=== PATIENT | male | born 1970 | race Caucasian/White ===

== ENCOUNTER → 2023-08-24 09:27 | Outpatient (REF) | payer OTHER, SELFPAY | LOC: RAD 09:27 | PROVIDERS: ATTENDING PHYSICIAN Nurse Practitioner Family; FAMILY PHYSICIAN Family Medicine | DX: I80.9 Phlebitis and thrombophlebitis of unspecified site (principal) | CPT/HCPCS: 93971 ==

== ENCOUNTER → 2023-11-16 06:29 | Day surgery (SDC) | payer OTHER, SELFPAY | LOC: GI 06:29 | PROVIDERS: ATTENDING PHYSICIAN Internal Medicine Gastroenterology | DX: Z12.11 Encounter for screening for malignant neoplasm of colon (principal); K63.5 Polyp of colon; K64.8 Other hemorrhoids | CPT/HCPCS: 45385; 45380; 88305 ==

== ENCOUNTER → 2023-12-21 15:45 | Outpatient (REF) | payer OTHER, SELFPAY | LOC: RAD 15:45 | PROVIDERS: ATTENDING PHYSICIAN Nurse Practitioner Family | DX: J40 Bronchitis, not specified as acute or chronic (principal); R05.2 Subacute cough; F17.200 Nicotine dependence, unspecified, uncomplicated | CPT/HCPCS: 71046 ==

== ENCOUNTER 2024-06-15 06:35 | Emergency (ER) | payer OTHER, SELFPAY ==
[2024-06-15 06:40] VITALS: BP 166/100
--- NOTE | 2024-06-15 06:55 | ED.GENMED ---
History of Present Illness
General
Chief Complaint: Abdominal Pain
Time Seen by Provider: 06/15/24 06:54
History of Present Illness
History of Present Illness:
TIME OF INITIAL ENCOUNTER: 7 AM
HPI: The patient presents with abdominal pain associated with vomiting. The pain started after he went out to dinner last night. He currently does not have any nausea. The pain is primarily in the left upper part of the abdomen. He has not had
any diarrhea.
EXAM:
GENERAL: Well appearing in no distress
HEENT: Moist oral mucosa
CARDIOVASCULAR: No murmurs, normal heart rate, regular rhythm, No chest wall tenderness
PULMONARY: No respiratory distress, breath sounds are clear and equal
ABDOMEN: Soft with no peritoneal signs, mild left upper quadrant tenderness
NEUROLOGIC: Excellent strength all extremities, no coordination deficits
PSYCHIATRIC: Appropriate mental status, normal insight and judgement
EXTREMITIES: Nontender, no edema, moves all extremities equally
SKIN: No rash, no lesions
NUMBER AND COMPLEXITY OF PROBLEMS ADDRESSED AT THE ENCOUNTER
� Chronic conditions affecting care: High blood pressure
� Acute Exacerbation and/or Progression of Chronic Illness: This is an acute problem
� Differential Diagnosis includes: Viral gastroenteritis, diverticulitis, mesenteric adenitis, bowel obstruction, kidney stone
AMOUNT AND/OR COMPLEXITY OF DATA TO BE REVIEWED AND ANALYZED
� I performed an independent evaluation of and my interpretation is:
EKG:
CT: CT personally reviewed I agree with radiologist interpretation there is a 5 mm stone in the left ureter and there is also a mass in the right lower quadrant mesentery
X-rays:
Laboratory Studies: White count 12.7, hemoglobin normal, chemistries unremarkable, urinalysis shows blood without evidence for UTI
Other:
� Review of other/old records: I reviewed records, the patient had a colonoscopy in 2023 in which polyps were removed. Internal hemorrhoids were also noted.
� Clinical information was obtained by an independent historian: None needed
� Prescriptions/Medications Considered but not given:
� Further testing considered but not performed:
RISK OF COMPLICATIONS AND/OR MORBIDITY OR MORTALITY OF PATIENT MANAGEMENT
� Social determinants of health affecting care: Lives at home
� Discussion with other providers:
� Escalation of care including admission/observation vs risk of discharge considered: The patient presents with left upper quadrant discomfort since last night, vomited 3 times but no longer is nauseated. Mild white count
elevation at 12.7. CT imaging obtained.
ANY OTHER UPDATES:
9 AM: I reassessed patient. The patient appears comfortable. He feels improved after Toradol was given. He did not take Celebrex last due to the vomiting. He will resume NSAIDs. I also informed patient of the 1.7 cm mass and printed out copy of
the CT report for him regarding this mass. Recommend PMD follow-up for now. He is also to follow-up with urology. No evidence for UTI
Past History
Past History
ED Past Medical History: HTN
Social History
Tobacco: Non-smoker
Drug: None
Living: with family
Employment: Employed
Phy Exam
Physical Exam
Physical Exam:
See HPI
Course
Orders/Labs/Results
Orders:
Orders
06/15/24 06:45
IV Insert/Care/Rem.- Treatment PRN
06/15/24 07:01
CT Abd/pelvis W Iv Cont Urgent
Comment:
Reason For Exam: LUQ pain
06/15/24 07:18
0.9% Sodium Chloride 1000 ml [Nss] 1,000 ml IV BOLUS
Ketorolac [Toradol] 15 mg IV NOW STA
06/15/24 07:32
Complete Blood Count/With Diff Urgent
Comprehensive Metabolic Panel Urgent
Lipase Urgent
Urinalysis Reflex To Culture Urgent
Date Specimen was Collected: 06/15/24
Time Specimen was Collected: 06:45
Urine Microscopic Reflex Cult Urgent
Urine Culture Urgent
[place] Source: U
Specimen Description:
Date Specimen was Collected: 06/15/24
Time Specimen was Collected: 06:45
Abnormal Lab Results
06/15/24
07:32
WBC 12.7 H 10^3/uL
(4.8-10.8)
Absolute Neuts (auto) 10.6 H 10^3/uL
(1.4-6.5)
Absolute Monos (auto) 0.8 H 10^3/uL
(0.1-0.6)
Neutrophils % 83.2 H %
(42.2-75.2)
Lymphocytes % 9.8 L %
(20.5-51.1)
Glucose 122 H mg/dl
(70-99)
Ur Occult Blood Reflex 4+ A
(Negative)
Urine RBC 30-40 A /HPF
(0-2)
Urine Bacteria (Reflex) Moderate A
(Negative)
06/15/24 07:32
06/15/24 07:32
Vital Signs
Initial and Last Documented VS:
Initial Vital Signs
Temp Pulse Resp BP Pulse Ox
36.7 C 86 20 166/100 97
06/15/24 06:40 06/15/24 06:40 06/15/24 06:40 06/15/24 06:40 06/15/24 06:40
Last Documented Vital Signs
Temp Pulse Resp BP Pulse Ox
36.7 C 86 20 166/100 98
06/15/24 06:40 06/15/24 06:40 06/15/24 06:40 06/15/24 06:40 06/15/24 06:40
*Critical Care Note
Total Time (30-74mins, 75-104mins- exclusive of procedures): Not Applicable
ED Attending Note
-
Portions of this chart may have been created with voice recognition software.� Occasional wrong word or��sound alike� substitutions may have occurred due to the inherent limitations of voice recognition software.
Discharge Plan
Departure
Patient Disposition: Home (Routine Discharge)
Date of Disposition: 06/15/24
Time of Disposition: 08:58
Patient with high blood pressure during this ER visit?: Yes
Discharge Problem:
Left ureteral stone
Instructions: Kidney Stones (DC)
Prescriptions:
New
oxycodone-acetaminophen [Percocet] 5-325 mg tablet
1 - 2 tab PO Q6H PRN (Reason: Pain) Qty: 14 0RF
ondansetron HCl 4 mg tablet
4 mg PO Q6H PRN (Reason: nausea and vomiting) Qty: 14 0RF
tamsulosin [Flomax] 0.4 mg capsule
0.4 mg PO DAILY Qty: 14 0RF
No Action
Lisinopril
20 mg PO DAILY
Celebrex
200 mg PO HS
amlodipine
2.5 mg PO DAILY
Referrals:
Robb Avitia MD [Family Provider] -
Tony Fuentes MD [Active] - Follow up in 2-3 days
Activity Restrictions/Additional Instructions:
You have a 5 mm stone in the middle of the left ureter. This is likely cause of your pain. Continue taking Celebrex. For more severe pain, I sent a prescription for Percocet to your pharmacy. The urinalysis does show blood does not show any
signs of infection. I recommend that you follow-up with the urologist such as Dr. Fuentes.
Also on CAT scan, radiologist noted: '1.7 cm soft tissue nodule in the right lower quadrant mesentery. This could reflect neoplasm such as carcinoid. Differential includes sclerosing mesenteritis. Outpatient workup recommended which may include
tissue sampling and/or further imaging (e.g. Ga-68 Dotatate)'.
Interventions
Interventions:
*Risk Screen - Suicide Last Done: 06/15/24 06:40
*General Assessment Last Done: 06/15/24 06:40
*Neglect/Abuse Screening Last Done: 06/15/24 06:40
ED- Fall Risk Assessment Last Done: 06/15/24 06:40
*ED COVID-19 Vaccine History Last Done: 06/15/24 06:40
XB-Anbuly-Vwdrqxwhvv Assessment Last Done: 06/15/24 07:52
Discharge Date and Time
Print Language: YI
[2024-06-15] MEDS: NSS 1000 IV (07:33)
[2024-06-15] MEDS: TORADOL 15 MG IV (07:33)
[2024-06-15 07:59] LABS: ALT (SGPT) 25 U/L (0-50); AST (SGOT) 27 U/L (17-59); Albumin 4.5 g/dl (3.5-5.0); Alkaline Phosphatase 55 U/L (38-126); Blood Urea Nitrogen 15 mg/dl (9-20); Calcium 9.2 mg/dl (8.4-10.2); Carbon Dioxide 26 mmol/L (22-30); Chloride 103 mmol/L (98-107); Glucose 122 mg/dl (70-99); Lipase 69 U/L (23-300); Potassium 4.6 mmol/L (3.5-5.1); Sodium 138 mmol/L (135-145); Total Bilirubin 0.7 mg/dl (0.2-1.3); Total Protein 7.3 g/dl (6.3-8.2); eGFR > 60.00
[2024-06-15 08:00] VITALS: BP 154/73
[2024-06-15 08:02] LABS: % Basophils 0.1 % (0-2); % Eosinophils 0.1 % (0-6); % Immature Granulocytes 0.3 % (0-0.5); % Lymphocytes 9.8 % (20.5-51.1); % Monocytes 6.5 % (1.7-9.3); % Neutrophils 83.2 % (42.2-75.2); Absolute Lymphocytes 1.2 10^3/uL (1.2-3.4); Absolute Monocytes 0.8 10^3/uL (0.1-0.6); Absolute Neutrophils 10.6 10^3/uL (1.4-6.5); Hematocrit 43.5 % (39.0-52.0); Hemoglobin 15.2 g/dL (13.0-18.0); Mean Corp Hgb Conc. 34.9 g/dL (33.0-37.0); Mean Corpuscular Hgb 30.5 pg (27.0-31.0); Mean Corpuscular Volume 87.3 fL (80.0-94.0); Mean Platelet Volume 8.7 fL (7.4-10.4); Nucleated Red Blood Cells % 0 % (-); Platelet Count 263 10^3/uL (130-400); Red Blood Cell Count 4.98 10^6/uL (4.70-6.10); Red Cell Dist. Width 12.7 % (11.5-14.5); White Blood Cell Count 12.7 10^3/uL (4.8-10.8)
[2024-06-15 08:41] LABS: Urine Albumin Trace (Neg - Trace); Urine Bilirubin Negative (Negative); Urine Character Clear (Clear); Urine Color Yellow; Urine Glucose Negative (Negative); Urine Ketone Negative (Negative); Urine Leukocyte Negative (Negative); Urine Nitrite Negative (Negative); Urine Occult Blood 4+ (Negative); Urine Urobilinogen Negative (Neg - 1+)
[2024-06-15 08:56] LABS: Urine Bacteria Moderate (Negative); Urine Red Blood Cell 30-40 /HPF (0-2); Urine Squamous Cell None seen /LPF (Few); Urine White Cell None Seen /HPF (0-5)
== END 2024-06-15 09:46 | disposition home or self-care (01) ==
LOC: EMR 06:35
PROVIDERS: EMERGENCY PHYSICIAN Emergency Medicine; FAMILY PHYSICIAN Family Medicine
DX: N13.2 Hydronephrosis with renal and ureteral calculous obstruction (principal); I10 Essential (primary) hypertension
CPT/HCPCS: 99284; 96374; 96361; 74177; 80053; 81003; 81015; 83690; 85025; 87086; Q9967

== ENCOUNTER → 2024-07-12 09:32 | Outpatient (REF) | payer OTHER, SELFPAY | LOC: RAD 09:32 | PROVIDERS: ATTENDING PHYSICIAN Urology; FAMILY PHYSICIAN Family Medicine | DX: N20.0 Calculus of kidney (principal) | CPT/HCPCS: 74018 ==

== ENCOUNTER → 2024-08-06 09:02 | Outpatient (REF) | payer OTHER, SELFPAY | LOC: MRI 3T 09:02 | PROVIDERS: ATTENDING PHYSICIAN Surgery; FAMILY PHYSICIAN Family Medicine | DX: K63.89 Other specified diseases of intestine (principal) | CPT/HCPCS: 72197; 74183; A9575 ==

== ENCOUNTER → 2024-09-07 07:04 | Outpatient (REF) | payer OTHER, SELFPAY | LOC: MRI 07:04 | PROVIDERS: ATTENDING PHYSICIAN Physical Medicine & Rehabilitation; FAMILY PHYSICIAN Family Medicine | DX: M75.42 Impingement syndrome of left shoulder (principal) | CPT/HCPCS: 73221 ==

== ENCOUNTER 2024-10-21 17:38 | Emergency (ER) | payer OTHER, SELFPAY ==
[2024-10-21 17:41] VITALS: BP 149/102
[2024-10-21 18:03] LABS: % Basophils 0.5 % (0-2); % Eosinophils 2.9 % (0-6); % Immature Granulocytes 0.2 % (0-0.5); % Lymphocytes 34.3 % (20.5-51.1); % Monocytes 10.7 % (1.7-9.3); % Neutrophils 51.4 % (42.2-75.2); Absolute Eosinophils 0.2 10^3/uL (0-0.7); Absolute Lymphocytes 2.8 10^3/uL (1.2-3.4); Absolute Monocytes 0.9 10^3/uL (0.1-0.6); Absolute Neutrophils 4.3 10^3/uL (1.4-6.5); Hematocrit 37.8 % (39.0-52.0); Hemoglobin 13.4 g/dL (13.0-18.0); Mean Corp Hgb Conc. 35.4 g/dL (33.0-37.0); Mean Corpuscular Hgb 30.9 pg (27.0-31.0); Mean Corpuscular Volume 87.3 fL (80.0-94.0); Mean Platelet Volume 8.2 fL (7.4-10.4); Nucleated Red Blood Cells % 0 % (-); Platelet Count 266 10^3/uL (130-400); Red Blood Cell Count 4.33 10^6/uL (4.70-6.10); Red Cell Dist. Width 12.6 % (11.5-14.5); White Blood Cell Count 8.3 10^3/uL (4.8-10.8)
[2024-10-21 18:31] LABS: ALT (SGPT) 31 U/L (0-50); AST (SGOT) 28 U/L (17-59); Albumin 4.2 g/dl (3.5-5.0); Alkaline Phosphatase 50 U/L (38-126); Blood Urea Nitrogen 14 mg/dl (9-20); Carbon Dioxide 22 mmol/L (22-30); Chloride 110 mmol/L (98-107); Glucose 114 mg/dl (70-99); Potassium 3.4 mmol/L (3.5-5.1); Sodium 140 mmol/L (135-145); Total Bilirubin 0.9 mg/dl (0.2-1.3); eGFR > 60.00
[2024-10-21 20:43] VITALS: BP 136/91
[2024-10-21 20:49] VITALS: BP 136/91
[2024-10-21 21:00] VITALS: BP 128/86
--- NOTE | 2024-10-21 21:55 | ED.GENMED ---
History of Present Illness
General
Chief Complaint: Skin Problem
Source: patient
Exam Limitations: none
Time Seen by Provider: 10/21/24 20:47
Nursing documentation reviewed up to this point in time: agreed with
History of Present Illness
History of Present Illness:
54-year-old male past medical history of hypertension presenting to the emergency department today with concerns of right lower extremity redness and swelling mainly to the right heller region over the past 3 days. Was seen by the primary care doctor
and sent to the ER to rule out DVT. Denies any chest pain shortness of breath or any recent trauma surgery immobilization or history of blood clots. Denies any fevers nausea or vomiting.
Past History
Past History
ED Past Medical History: HTN
Social History
Tobacco: Non-smoker
Drug: None
Living: with family
Employment: Employed
Review of Systems
Review of Systems
Allergies reviewed?: Yes
All Other Systems: ROS reviewed and negative except as documented in HPI and ROS
Phy Exam
Physical Exam
Physical Exam:
GENERAL: Alert , in no apparent distress
EYE: pupils equal and reactive
NECK: Supple, no significant adenopathy.
ENT: o/p clr, mmm.
CARDIAC: Regular rate and rhythm .
LUNGS: Clear breath sounds bilaterally, no acute respiratory distress, no wheezes/rales/rhonchi
ABDOMEN: Soft, without focal tenderness, no r/g, no cvat
NEUROLOGICAL: Alert and oriented, no focal neuro deficits
SKIN: Redness swelling mild tenderness to palpation to the right anterior heller roughly 15 x 5 cm in total size. Does not cross the knee joint or ankle joint. Warm and dry, skin intact.
MUSCULOSKELETAL: No edema, well perfused.
PSYCH: Normal and appropriate interaction.
Course
Orders/Labs/Results
Orders:
Orders
10/21/24 17:44
US Legs, Right [US Periph Venous LOWER Ext RT] Urgent
Comment:
Reason For Exam: red/swelling/pain
10/21/24 17:55
Complete Blood Count/With Diff Urgent
Comprehensive Metabolic Panel Urgent
10/21/24 21:54
Cephalexin Monohydrate [Keflex] 500 mg PO NOW STA
Abnormal Lab Results
10/21/24
17:55
RBC 4.33 L 10^6/uL
(4.70-6.10)
Hct 37.8 L %
(39.0-52.0)
Absolute Monos (auto) 0.9 H 10^3/uL
(0.1-0.6)
Monocytes % 10.7 H %
(1.7-9.3)
Potassium 3.4 L mmol/L
(3.5-5.1)
Chloride 110 H mmol/L
(98-107)
Creatinine 0.5 L mg/dL
(0.7-1.3)
Glucose 114 H mg/dl
(70-99)
10/21/24 17:55
10/21/24 17:55
Vital Signs
Initial and Last Documented VS:
Initial Vital Signs
Temp Pulse Resp BP Pulse Ox
98.6 F 105 20 149/102 96
10/21/24 17:41 10/21/24 17:41 10/21/24 17:41 10/21/24 17:41 10/21/24 17:41
Last Documented Vital Signs
Temp Pulse Resp BP Pulse Ox
98.6 F 89 18 128/86 95
10/21/24 17:41 10/21/24 21:38 10/21/24 21:38 10/21/24 21:00 10/21/24 21:30
MDM/Problems Addressed
MDM/Problems Addressed:
54-year-old male presenting to the emergency department today with concerns of right heller redness and swelling worsening over the past 3 days. No systemic symptoms. No history of immunosuppression. Labs unremarkable. Ultrasound without signs of
DVT. There is a possibility of cellulitis. Patient was started on antibiotics and otherwise will follow-up closely as an outpatient with his primary care doctor. Return precautions given.
*Critical Care Note
Total Time (30-74mins, 75-104mins- exclusive of procedures): Not Applicable
ED Attending Note
-
Portions of this chart may have been created with voice recognition software.� Occasional wrong word or��sound alike� substitutions may have occurred due to the inherent limitations of voice recognition software.
Discharge Plan
Departure
Patient Disposition: Home (Routine Discharge)
Date of Disposition: 10/21/24
Time of Disposition: 21:55
Patient with high blood pressure during this ER visit?: No
Condition: Good
Covid-19: Not Applicable
Discharge Problem:
Cellulitis of leg, right
Instructions: Cellulitis (Skin Infection), Adult (DC)
Prescriptions:
No Action
Lisinopril
20 mg PO DAILY
Celebrex
200 mg PO HS
amlodipine
2.5 mg PO DAILY
oxycodone-acetaminophen [Percocet] 5-325 mg tablet
1 - 2 tab PO Q6H PRN (Reason: Pain) Qty: 14 0RF
ondansetron HCl 4 mg tablet
4 mg PO Q6H PRN (Reason: nausea and vomiting) Qty: 14 0RF
tamsulosin [Flomax] 0.4 mg capsule
0.4 mg PO DAILY Qty: 14 0RF
Referrals:
Lu Vyas PA [Family Provider, Family Practice]
Activity Restrictions/Additional Instructions:
You came to the emergency department today with concerns of swelling to your right lower extremity. This could be an infection. Please take Keflex 4 times daily over the next week and follow-up closely with the primary care doctor. Return for any
worsening, new or concerning symptoms.
Interventions
Interventions:
*Risk Screen - Suicide Last Done: 10/21/24 17:41
*General Assessment Last Done: 10/21/24 17:41
*Neglect/Abuse Screening Last Done: 10/21/24 17:41
*ED- Fall Risk Assessment Last Done: 10/21/24 20:58
*ED COVID-19 Vaccine History Last Done: 10/21/24 20:58
Discharge Date and Time
Print Language: ALGERIAN
[2024-10-21] MEDS: KEFLEX 500 MG PO (22:00)
== END 2024-10-21 22:03 | disposition home or self-care (01) ==
LOC: EMR 17:38
PROVIDERS: Emergency Medicine; EMERGENCY PHYSICIAN Student in an Organized Health Care Education/Training Program; FAMILY PHYSICIAN Physician Assistant Medical
DX: L03.115 Cellulitis of right lower limb (principal); M79.604 Pain in right leg; R60.0 Localized edema; I10 Essential (primary) hypertension; M19.90 Unspecified osteoarthritis, unspecified site
CPT/HCPCS: 99284; 80053; 85025; 93971

== ENCOUNTER 2025-03-04 06:16 | Day surgery (SDC) | payer OTHER, SELFPAY ==
[2025-02-18 14:08] VITALS: BMI 35.5
[2025-02-18 14:41] LABS: Hematocrit 44.1 % (39.0-52.0); Hemoglobin 15.7 g/dL (13.0-18.0); Mean Corp Hgb Conc. 35.6 g/dL (33.0-37.0); Mean Corpuscular Volume 88.7 fL (80.0-94.0); Nucleated Red Blood Cells % 0 % (-); Platelet Count 264 10^3/uL (130-400); Red Cell Dist. Width 12.6 % (11.5-14.5)
[2025-02-18 15:39] LABS: Blood Urea Nitrogen 11 mg/dl (9-20); Calcium 9.2 mg/dl (8.4-10.2); Carbon Dioxide 24 mmol/L (22-30); Chloride 105 mmol/L (98-107); Estimated Creatinine Clearance > 125 ml/min; Glucose 89 mg/dl (70-99); Potassium 4.2 mmol/L (3.5-5.1); Sodium 136 mmol/L (135-145); eGFR > 60.00
[2025-03-04] VITALS (8 sets, daily range): BP systolic 118–151; BP diastolic 79–96; BMI 35.5
[2025-03-04] MEDS: NORMOSOL-R/PLASMALYTE-A 1000 IV (10:31)
[2025-03-04] MEDS: TYLENOL 1000 MG PO (10:31)
[2025-03-04] MEDS: CELEBREX 200 MG PO (10:31)
== END 2025-03-04 16:02 | disposition home or self-care (01) ==
LOC: SDS 06:16
PROVIDERS: ATTENDING PHYSICIAN Orthopaedic Surgery Hand Surgery; FAMILY PHYSICIAN Family Medicine
DX: S46.012A Strain of muscle(s) and tendon(s) of the rotator cuff of left shoulder, initial encounter (principal); S46.212A Strain of muscle, fascia and tendon of other parts of biceps, left arm, initial encounter; X58.XXXA Exposure to other specified factors, initial encounter
CPT/HCPCS: 29827; 36415; 80048; 85025; 93005; C1713